=== PATIENT | female | born 1985 | race Caucasian/White ===

== ENCOUNTER → 2017-09-26 | Outpatient (CLI) | payer OTHER | LOC: FIMAGING 11:38 | PROVIDERS: ATTEND Obstetrics & Gynecology | DX: Z34.82 Encounter for supervision of other normal pregnancy, second trimester (principal); Z86.69 Personal history of other diseases of the nervous system and sense organs; Z87.59 Personal history of other complications of pregnancy, childbirth and the puerperium; Z3A.20 20 weeks gestation of pregnancy ==

== ENCOUNTER 2017-12-03 10:00 | Observation (INO) | payer OTHER ==
[2017-12-03] MEDS ORDERED: LR 1,000 ML IV SCH (10:30)
[2017-12-03 10:37] LABS: PLATELET COUNT 232 10^3/uL (150-400)
--- NOTE | 2017-12-03 13:27 | GHP ---
[f rep st] PREOP HISTORY AND PHYSICAL DATE OF ADMISSION: 12/03/2017 OBSTETRICS TRIAGE NOTE ADMITTING DIAGNOSIS: Intrauterine at 28 weeks' gestation, with viral gastroenteritis. HISTORY OF PRESENT ILLNESS: The patient is a 32-year-old 2, para 1-0-0-1, at 28 weeks, who p resented with severe episodes of nausea, vomiting, and diarrhea overnight on the . On the morning of the , she had decreased nausea and vomiting, but began having contractions and called because she was concerned. The patient presented to Labor and Delivery for evaluation. PHYSICAL EXAMINATION: VITAL SIGNS: She was afebrile. Vital signs were stable. ABDOMEN: The patie nt had heart tones that were 130s, appropriate for gestational age, and reassuring. She had ir regular contractions. LABORATORY DATA: Electrolytes and CBC were normal. PLAN: The patient was given IV hydration and monitored carefully. She was offered antiemetics and a ntidiarrheal meds, and she declined. The patient will continue to be observed and likely discharged home when she feels better. /[id number]/MODL
== END 2017-12-03 15:25 | disposition home or self-care (01) ==
LOC: FLD 10:00
PROVIDERS: ADMIT Obstetrics & Gynecology; ATTEND Obstetrics & Gynecology
DX: O98.513 Other viral diseases complicating pregnancy, third trimester (principal); A08.4 Viral intestinal infection, unspecified; Z3A.28 28 weeks gestation of pregnancy
CPT/HCPCS: G0378 ×2

== ENCOUNTER 2018-02-01 10:35 | Inpatient (IN) | payer OTHER ==
[2018-02-01] MEDS ORDERED: TERBUTALINE SULFATE 1 MG/ML VIAL IV PRN (10:49)
[2018-02-01] MEDS ORDERED: EPSOM SALT 454 GM TP PRN (10:49)
[2018-02-01] MEDS ORDERED: LR 1,000 ML IV PRN (10:49)
[2018-02-01] MEDS ORDERED: MISOPROSTOL 200 MCG TAB PR PRN (10:49)
[2018-02-01] MEDS ORDERED: OLIVE OIL 118 ML BTL MISC PRN (10:49)
[2018-02-01] MEDS ORDERED: AMPICILLIN SODIUM 2 GM in STERILE WATER INJ 25 ML IV ONE (10:49)
[2018-02-01] MEDS ORDERED: OXYTOCIN 20 UNIT in LR 1,000 ML IV PRN (10:49)
[2018-02-01] MEDS ORDERED: AMPICILLIN SODIUM 1 GM in NS 50 ML IV SCH (11:50)
[2018-02-01] MEDS ORDERED: LIDOCAINE 1% 300 MG/30 ML SDV ONE (11:52)
[2018-02-01] MEDS ORDERED: OXYTOCIN 10 UNIT/ML VIAL ONE (11:53)
[2018-02-01] MEDS ORDERED: OLIVE OIL 118 ML BTL ONE (11:53)
[2018-02-01] MEDS ORDERED: AMMONIA AROMATIC 1 EACH AMP IH ONE (11:53)
[2018-02-01] MEDS ORDERED: TERBUTALINE SULFATE 1 MG/ML VIAL ONE (11:53)
[2018-02-01] MEDS ORDERED: MISOPROSTOL 200 MCG TAB ONE (11:53)
--- NOTE | 2018-02-01 12:59 | PDGENHP ---
History and Physical History and Physical: HPI: Patient is a [id number] with IUP@37-6wks that presents to L&D with complaints of contractions since 01/31/18 @ 1500. She states they got stronger and more frequent throughout the night. She states they were every 7-25 minutes but increasing in strength. She states they are not as frequent as she expects for labor. She denies any LOF, VB. She reports +FM. EDC: 02/16/18 which is based on LMP: 05/11/17 which is known and consistent with Ultrasound at [ ] weeks. Her is complicated by: Guillain-[place], history of IUGR, anxiety, migraines, HSV 1 Review of Systems: Constitutional: Denies any fever, chills, or fatigue HEENT: denies any visual changes, difficulty swallowing, hearing loss Cardiovascular: Denies any chest pain, palpitations, leg swelling Respiratory: denies any cough, wheezing, or shortness of breathe GI: Denies any nausea, vomiting, diarrhea, constipation : denies any dysuria, urgency, frequency, vaginal bleeding Musculoskeletal: denies any muscle or bone pain Skin: denies any rashes Neuro: denies any headache, seizures, lightheadedness, dizziness, or loss of consciousness Psychiatric: denies any depression, anxiety, or SI/HI thoughts HISTORY: Previous OB history: x2, h/o IUGR Past medical history: Guillain-[place], migraines Past surgical history: right hip surgery 2004 Medications: PNV Allergies (list reaction): NKDA LABS: Rh: O pos ABS: Neg Rubella: Immune HbsAg: NR HIV: NR VDRL: NR 1hr: 115 GC: Neg Chlamydia: Neg Pap: Normal GBS: positive BMI: (prepreg) 19 PHYSICAL EXAM: Constitutional: WN, A&Ox3 HEENT: normocephalic atraumatic, supple Heart: RRR, no murmur Chest: CTA-B Abdomen: Soft, nontender, gravid SVE: 4/50/-2 Extremities: no edema, negative homans sign Neuro: grossly normal Psych: normal affect assessment: Reassuring FHTs, baseline 135 +accels, no decels, moderate variability Contractions: toco q 4-7min Assessment: 1) [id number] with IUP@37-6wks 2) early labor 3) GBS + 4) Cat 1 FHR tracing Plan: 1) Admit to L&D 2) IV abx 3) pain management PRN 4) reassess 2hr/PRN 5) anticipate
[2018-02-01] MEDS: AMPICILLIN SODIUM 1 GM in STERILE WATER INJ 15 ML IV SCH ×2 (14:17→16:01)
[2018-02-01] MEDS ORDERED: BUPIVACAINE 0.25% 30 ML SDV ONE (16:15)
[2018-02-01] MEDS ORDERED: PHENYLEPHRINE HCL 100 MCG/ML SYR ONE (16:15)
[2018-02-01] MEDS: IBUPROFEN 600 MG TAB PO PRN ×2 (16:52→23:48)
--- NOTE | 2018-02-01 19:06 | OBGCSDC ---
General Delivery Information - General Info : 3 Para: 3 Abortions: 0 Type: Vaginal L&D Analgesia/Anesthesia Type: Nitrous Admission Date: 02/01/18 Labs: Patient ABO/Rh O POSITIVE 02/01/18 11:30 Hct REJ 02/01/18 11:30 - Hospital Course Antepartum: 02/01/18 19:01 Routine care with C/request CNM care. Past medical history is positive for migraines, Guillain-[place], anxiety, HSV 1. Intrapartum: 02/01/18 19:01 Contractions started 01/31/18, she presented to the office for a labor check on and was noted to be 4 cm. She was sent to Labor and delivery at that time. She labored unmedicated initially until AROM. Then used N2O for pain relief. Delivered without complications. Vaginal - Delivery Provider Delivery Physician/CNM: Narcisa Saucedo - Diagnosis Labor: Spontaneous Data MANUEL: 02/16/18 Gestational Age: 37 week(s) and 6 day(s) [place] Delivery Date: 02/01/18 Delivery Time: 16:24 Sex of : Male Score (1 Min): 8 Score (5 Min): 9
--- NOTE | 2018-02-01 19:11 | OBDEL ---
Info Type: Vaginal Presentation at Delivery: Vertex L&D Analgesia/Anesthesia Type: Nitrous GBS+: Yes Antibiotic Used for + GBS: Ampicillin Intrapartum Medications: Generic Name Dose Route Start Last Admin Trade Name Ned PRN Reason Stop Dose Admin Ibuprofen 600 mg 02/01/18 10:49 02/01/18 16:52 Motrin PO 07/31/18 10:48 600 mg Q6HRS PRN Administration post , inflammation Discontinued Medications Generic Name Dose Route Start Last Admin Trade Name Ned PRN Reason Stop Dose Admin Ampicillin Sodium 2 gm/ 25 mls @ 100 mls/hr 02/01/18 10:49 02/01/18 11:41 Sterile Water IV 02/01/18 11:03 25 mls ONCE ONE Administration Protocol Ampicillin Sodium 1 gm/ 15 mls @ 60 mls/hr 02/01/18 11:50 02/01/18 16:01 Sterile Water IV 03/03/18 11:49 15 mls Q4H DUNIA Administration Indications for Delivery: Spontaneous Labor Vaginal Delivery - Delivery Provider Delivery Physician/CNM: Narcisa Saucedo - Labor and Delivery Onset of Contractions Date: 01/31/18 Onset of Contractions Time: 15:00 Onset of Contractions Type: Spontaneous Rupture of Membranes Date: 02/01/18 Rupture of Membranes Time: 15:22 Rupture of Membranes Type: Artificial Amniotic Fluid Color: Clear Dilation Complete Date: 02/01/18 Dilation Complete Time: 16:20 Placenta Delivery Date: 02/01/18 Placenta Delivery Time: 16:33 Total Hours of Labor: 25 Vaginal Sponge Count Correct: Yes Vaginal Needle Count Correct: Yes Vaginal Sweep Performed: Yes EBL: 100 Delivery Events: None Delivery Comment: delivered using nitrous Data MANUEL: 02/16/18 Gestational Age: 37 week(s) and 6 day(s) [place] Delivery Date: 02/01/18 Delivery Time: 16:24 Sex of : Male Score (1 Min): 8 Score (5 Min): 9 ICD10 Worksheet Patient Problems: Problems Problem Status Onset (spontaneous vaginal delivery) Acute IUGR (intrauterine growth restriction) affecting care of mother Acute - ICD10 Problem Qualifiers (1) (spontaneous vaginal delivery)
[2018-02-01] MEDS ORDERED: ACETAMINOPHEN 325 MG TAB PO PRN (21:21)
[2018-02-01] MEDS ORDERED: HYDROCODONE/APAP 5/325 TAB PO PRN (21:21)
[2018-02-01] MEDS ORDERED: SIMETHICONE 80 MG TAB CHEW PO PRN (21:21)
[2018-02-01] MEDS ORDERED: DOCUSATE SODIUM 100 MG CAP PO PRN (21:21)
[2018-02-01] MEDS ORDERED: HYDROCORTISONE 0.5% CREAM TP PRN (21:21)
[2018-02-01 22:17] VITALS: RESP 16
[2018-02-02 03:11] VITALS: O2SAT 96
[2018-02-02] MEDS: IBUPROFEN 600 MG TAB PO PRN ×2 (06:01→12:13)
[2018-02-02 10:54] VITALS: BP 116/78; PULSE 58; TEMP 97.5
--- NOTE | 2018-02-02 15:30 | OBPP ---
Progress Note Assessment/Plan: Assessment: 32 y/o PPD #1 s/p doing well. Plan: D/c home today with Rx Ibuprofen. Follow-up @ 4 and 6 weeks. 02/02/18 15:31 Subjective/ Course: 02/02/18 15:26 Pt is doing well. She has min pain controlled with Ibuprofen. She is ambulating, voiding without difficulty and has min lochia. Baby is doing well and she is breast feeding. They are ready to d/c home this afternoon. Objective: 02/01/18 11:30 Patient ABO/Rh O POSITIVE 02/01/18 11:30 Temp Pulse Resp BP Pulse Ox 36.4 C 58 L 16 116/78 96 02/02/18 08:30 02/02/18 08:30 02/02/18 08:30 02/02/18 08:30 02/02/18 03:10 Uterine Position/Fundal Height: Umbilicus -2 Uterine Tone: Firm Physical Exam - Physical Exam General Appearance: alert, no apparent distress Neck: non-tender, full range of motion, supple Respiratory: chest non-tender, lungs clear, normal breath sounds Cardiac/Chest: regular rate, rhythm Abdomen: normal bowel sounds Extremities: swelling (no), Karl's sign (neg)
--- NOTE | 2018-02-02 15:32 | OBGCSDC ---
General Delivery Information - General Info : 3 Para: 3 Abortions: 0 Type: Vaginal L&D Analgesia/Anesthesia Type: Nitrous Admission Date: 02/01/18 Labs: Patient ABO/Rh O POSITIVE 02/01/18 11:30 Hct REJ 02/01/18 11:30 - Hospital Course : 02/02/18 15:26 Pt is doing well. She has min pain controlled with Ibuprofen. She is ambulating, voiding without difficulty and has min lochia. Baby is doing well and she is breast feeding. They are ready to d/c home this afternoon. Vaginal - Delivery Provider Delivery Physician/CNM: Narcisa Saucedo - Diagnosis Labor: Spontaneous Rupture of Membranes Type: Artificial Amniotic Fluid Color: Clear Delivery Events: None - Delivery EBL: 100 Data MANUEL: 02/16/18 Gestational Age: 38 week(s) and 0 day(s) [place] Delivery Date: 02/01/18 Delivery Time: 16:24 Sex of : Male [place] Weight (gm): 2800 kg Score (1 Min): 8 Score (5 Min): 9 Discharge Information - Discharge Information Prescriptions: Ibuprofen [Motrin (*)] 600 mg PO Q6HRS PRN #30 tab PRN Reason: post , inflammation Condition: Good Instruction/Follow Up: Four Weeks, Six Weeks
== END 2018-02-02 16:45 | disposition home or self-care (01) | DRG 775 ==
LOC: FLD 10:35 → FOB 19:32
PROVIDERS: ADMIT Advanced Practice Midwife; ATTEND Obstetrics & Gynecology
PROC: 10E0XZZ Delivery of Products of Conception, External Approach (ICD-10-PCS; principal; 2018-02-01)
DX: O80 Encounter for full-term uncomplicated delivery (principal); Z3A.38 38 weeks gestation of pregnancy; Z37.0 Single live birth; Z86.69 Personal history of other diseases of the nervous system and sense organs; Z86.59 Personal history of other mental and behavioral disorders
CPT/HCPCS: J0290; J2370; J2590; J3105

== ENCOUNTER 2019-05-15 11:57 | Emergency (ER) | payer OTHER | END 2019-05-15 14:18 | disposition home or self-care (01) ==